=== PATIENT | female | born 1975 | race Caucasian/White ===

== ENCOUNTER 2020-09-17 12:10 | Observation (INO) | payer OTHER ==
[2020-09-17 13:07] LABS: Absolute Neutrophil Ct (ANC) 6.18 (1.4-6.9); BASOPHIL % 0.3 % (0.0-0.4); Basophil (Absolute #) 0.03 (0-0.4); Eosinophil % 2.2 % (0.00-5.0); Eosinophil (Absolute #) 0.21 (0-0.5); Hematocrit 45.9 % (35-47); Hemoglobin 14.5 gm/dl (12.0-16.0); Lymphocyte (Absolute #) 2.12 (1.0-4.6); Lymphocytes % 22.4 % (24.0-44.0); Mean Cell Volume 98.3 fl (78-100); Mean Corpuscular Hgb Concent. 31.6 g/dl (32-36); Mean Platelet Volume 10.2 fl (7.5-11.0); Monocyte (Absolute #) 0.92 (0.0-1.3); Monocytes % 9.7 % (0.0-12.0); Neutrophil % 65.4 % (36.0-66.0); Platelet Count 314 K/mm3 (150-450); Red Blood Count 4.67 M/mm3 (4.1-5.4); Red Cell Distribution Width 14.9 % (11.5-14.0); White Blood Count 9.5 K/mm3 (4.0-10.5)
[2020-09-17 13:18] LABS: Appearance SLIGHTLY CLOUDY (CLEAR); Bilirubin SMALL (NEGATIVE); Blood NEGATIVE Ery/ul (0-5); Epithelial Cells FEW /HPF (FEW); Glucose NEGATIVE (NEGATIVE); Ketones TRACE (NEGATIVE); Leukocyte Esterase NEGATIVE (NEGATIVE); Mucus SLIGHT /HPF (NEGATIVE); Nitrite NEGATIVE (NEGATIVE); Protein,Urine Dip 30 (Negative); RBC 0-2 /HPF (0-2); Specific Gravity 1.031 (1.005-1.025); Urobilinogen 4 mg/dL (0-1)
[2020-09-17 13:19] LABS: Bacteria FEW /HPF (NEGATIVE)
[2020-09-17 13:20] LABS: ALBUMIN 4.1 g/dL (3.5-5.0); ALKALINE PHOSPHATASE 118 U/L (38-126); ANION GAP 8.6 MEQ/L (5-15); BLOOD UREA NITROGEN 10 mg/dL (7-17); CHLORIDE 102 mmol/L (98-107); Calcium 8.9 mg/dL (8.4-10.2); Carbon Dioxide 31 mmol/L (22-30); Creatinine 1 0.95 mg/dL (0.52-1.04); EST GLOMERULAR FILTRATION RATE > 60.0 ML/MIN; Glucose 102 mg/dL (74-106); SGOT/AST 25 U/L (14-36); SGPT/ALT 21 U/L (0-35); SODIUM 138 mmol/L (137-145)
--- NOTE | 2020-09-17 13:20 | XRAY ---
Indication: Cellulitis. Edema. 2-dimensional sonogram and color Doppler imaging of the major venous vessels of the left and right leg was performed. Comparison: None No thrombus seen in the examined deep venous vessels of the left and right leg including greater saphenous vein. Veins demonstrate normal compressibility. Venous waveforms are normal with and without augmentation. Impression: Left and right legs negative for DVT.
--- NOTE | 2020-09-17 13:33 | ERPHSYRPT ---
- History of Present Illness Source: patient Exam Limitations: no limitations Patient Subjective Stated Complaint: pt here for cellulits to lower legs for over 2 months. was seen 3 days ago and refused to be admitted, was placed on 2 antiboitcs Triage Nursing Assessment: pt alert, resp easy,skin w/d/p. face mask in place, pt had reddness,scabs,blisters with drainage to both legs Physician History: 45 yo WF w B LE edema/erythema x 2+ months. Pt denies injury/fever/dyspnea/chest pain/DM. She was seen in a walk in clinic last week but does not f/u w her PCP on a regular basis. Method of Injury: unknown (No injury) Occurred: other (2+months) Quality: aching Severity of Pain-Max: moderate Severity of Pain-Current: moderate Lower Extremities Pain: leg: bilateral, ankle: bilateral Modifying Factors: Improves With: movement Associated Symptoms: none Allergies/Adverse Reactions: azithromycin [From Zithromax] Allergy (Verified 09/17/20 12:21) Home Medications: Amoxicillin 1 ea BID 09/17/20 [History] Sulfamethoxazole/Trimethoprim [Bactrim Ds Tablet] 1 ea BID 09/17/20 [History] Hx Influenza Vaccination/Date Given: No Hx Pneumococcal Vaccination/Date Given: Yes Immunizations Up to Date: Yes Travel Risk - International Travel Have you traveled outside of the country in past 3 weeks: No - Coronavirus Screening Are you exhibiting any of the following symptoms?: No Close contact with a COVID-19 positive Pt in past 14-21 Days: No - Vaccine Status Have you recieved a Covid-19 vaccination: No - Review of Systems Constitutional: No Symptoms Eyes: No Symptoms Ears, Nose, & Throat: No Symptoms Respiratory: No Symptoms Cardiac: No Symptoms Abdominal/Gastrointestinal: No Symptoms Genitourinary Symptoms: No Symptoms Musculoskeletal: Myalgias Skin: Cellulitis Neurological: No Symptoms Psychological: No Symptoms Endocrine: No Symptoms Hematologic/Lymphatic: No Symptoms Immunological/Allergic: No Symptoms - Past Medical History Pertinent Past Medical History: Yes Cardiac History: Peripheral Vascular Disease Endocrine Medical History: Hypothyroidism - Past Surgical History Past Surgical History: No - Social History Smoking Status: Current every day smoker Exposure to second hand smoke: Yes Drug Use: none Patient Lives Alone: No Significant Family History: no pertinent family hx - Female History Hx Last Menstrual Period: never Hx Now: No - Nursing Vital Signs Nursing Vital Signs: Initial Vital Signs Temperature 97.1 F 09/17/20 12:13 Pulse Rate 73 09/17/20 12:13 Respiratory Rate 18 09/17/20 12:13 Blood Pressure 129/82 09/17/20 12:13 O2 Sat by Pulse Oximetry 98 09/17/20 12:13 Pain Scale Pain Intensity 3 - Physical Exam General Appearance: obese (Morbidly) Eyes, Ears, Nose, Throat Exam: normal ENT inspection, TMs normal, pharynx normal, pharyngeal erythema Neck Exam: normal inspection, non-tender, supple, full range of motion, No Brudzinski, No Kernig's, No meningismus, No carotid bruit Cardiovascular/Respiratory Exam: normal breath sounds, regular rate/rhythm, hear t sounds normal Gastrointestinal/Abdominal Exam: non-tender, soft Back Exam: normal inspection, normal range of motion Hips Exam: bilateral: non-tender, normal inspection, normal range of motion Legs Exam: bilateral leg: soft tissue tenderness (B LE edema/erythema/weeping/Good pedal pulse B) Neuro/Tendon Exam: normal sensation, normal motor functions, normal tendon functions, responds to pain, no evidence tendon injury, No motor deficit, No sensory deficit Mental Status Exam: alert, oriented x 3, cooperative Skin Exam: other (B pre-tibial edema/erythema/weeping) SpO2: 98 O2 Delivery: Room Air - Radiology Ultrasound Exam Venous Lower Extremity Ultrasound: discussed w/radiologist (No DVT) Ordered Tests: Active Orders 24 hr Category Date Time Status IV Insertion STAT Care 09/17/20 12:47 Completed Heart-Healthy Diet Diet 09/17/20 Dinner Active VENOUS BILATERAL EXTREMITY [US] Stat Exams 09/17/20 12:39 Completed BLOOD CULTURE Stat Lab 09/17/20 12:55 Received CBC W DIFF Stat Lab 09/17/20 12:55 Completed CMP Stat Lab 09/17/20 12:55 Completed CULTURE,URINE Stat Lab 09/17/20 13:07 Received Lactic Acid Stat Lab 09/17/20 12:38 Completed NT PRO BNP Stat Lab 09/17/20 12:55 Completed POCT GLUCOSE Stat Lab 09/17/20 12:21 Completed PROCALCITONIN Stat Lab 09/17/20 13:55 Completed TSH [TSH, 3RD Generation] Stat Lab 09/17/20 13:27 Completed UA W/RFX UR CULTURE Stat Lab 09/17/20 13:07 Completed Transfer Order Routine Transfer 09/17/20 Completed Medication Summary Generic Name Dose Route Start Last Admin Trade Name Mateusz PRN Reason Stop Dose Admin Hydrocodone Bitart/Acetaminophen 2 tab 09/17/20 14:59 09/17/20 15:58 [place] 5/325 Mg PO 09/22/20 14:58 2 tab Q4H PRN PRN Administration PAIN Device 1 09/19/20 09:30 Trough Drug Levels IJ 09/19/20 09:31 1XONLY ONE Enoxaparin Sodium 40 mg 09/18/20 10:00 Enoxaparin Sodium SQ 10/18/20 09:59 DAILY DAMIEN Furosemide 40 mg 09/18/20 10:00 Lasix 40 Mg PO 10/18/20 09:59 DAILY DAMIEN Vancomycin HCl 2 gm in 400 mls @ 200 mls/hr 09/17/20 22:00 Vancomycin 2 Gram/400 Ml Bag IV 10/17/20 21:59 Q12H DAMIEN Levothyroxine Sodium 50 mcg 09/18/20 10:00 Synthroid 50 Mcg PO 10/18/20 09:59 DAILY DAMIEN Ondansetron HCl 4 mg 09/17/20 14:57 Zofran 4 Mg/2 Ml Vial IV 10/17/20 14:56 Q6H PRN PRN NAUSEA/VOMITING Pantoprazole Sodium 40 mg 09/18/20 10:00 Protonix 40 Mg Iv IV 10/18/20 09:59 Q24H10 DAMIEN Sodium Chloride 10 ml 09/17/20 22:00 Sodium Chloride 0.9% 10 Ml Flush Syringe IV 10/17/20 21:59 Q8HT DAMIEN Sodium Chloride 10 ml 09/17/20 16:00 Sodium Chloride 0.9% 10 Ml Flush Syringe IV 10/17/20 15:59 PRN PRN Discontinued Medications Generic Name Dose Route Start Last Admin Trade Name Mateusz PRN Reason Stop Dose Admin Vancomycin HCl 1 gm in 200 mls @ 125 mls/hr 09/17/20 13:45 09/17/20 13:46 Vancomycin 1 Gram/200 Ml Bag IV 10/17/20 13:44 125 mls/hr Q12H DAMIEN 125 mls/hr Administration Vancomycin HCl 2 gm in 400 mls @ 200 mls/hr 09/17/20 15:45 09/17/20 19:10 Vancomycin 2 Gram/400 Ml Bag IV 10/17/20 17:59 Not Given Q12H [facility] Lab/Rad Data: Laboratory Result Diagrams 09/17/20 12:55 09/17/20 12:55 Laboratory Results 09/17/20 09/17/20 09/17/20 Range/Units 14:05 13:55 13:27 WBC (4.0-10.5) K/mm3 RBC (4.1-5.4) M/mm3 Hgb (12.0-16.0) gm/dl Hct (35-47) % MCV (78-100) fl MCH (26-32) pg MCHC (32-36) g/dl RDW (11.5-14.0) % Plt Count (150-450) K/mm3 MPV (7.5-11.0) fl Gran % (36.0-66.0) % Eos # (Auto) (0-0.5) Absolute Lymphs (auto) (1.0-4.6) Absolute Monos (auto) (0.0-1.3) Lymphocytes % (24.0-44.0) % Monocytes % (0.0-12.0) % Eosinophils % (0.00-5.0) % Basophils % (0.0-0.4) % Absolute Granulocytes (1.4-6.9) Basophils # (0-0.4) Sodium (137-145) mmol/L Potassium (3.5-5.1) mmol/L Chloride (98-107) mmol/L Carbon Dioxide (22-30) mmol/L Anion Gap (5-15) MEQ/L BUN (7-17) mg/dL Creatinine (0.52-1.04) mg/dL Estimated GFR ML/MIN Glucose (74-106) mg/dL POC Glucometer (74 to 106) mg/dL Lactic Acid (0.4-2.0) Calcium (8.4-10.2) mg/dL Total Bilirubin (0.2-1.3) mg/dL AST (14-36) U/L ALT (0-35) U/L Alkaline Phosphatase (38-126) U/L NT-Pro-B Natriuret Pep (0-450) pg/mL Serum Total Protein (6.3-8.2) g/dL Albumin (3.5-5.0) g/dL Procalcitonin 0.053 (0.030-0.080) ng/mL Free T4 (0.76-1.46) ng/dL TSH 3rd Generation 2.840 (0.47-4.68) mIU/L Urine Color (YELLOW) Urine Appearance (CLEAR) Urine pH (5-6) Ur Specific [place] (1.005-1.025) Urine Protein (Negative) Urine Ketones (NEGATIVE) Urine Blood (0-5) Mahesh/ul Urine Nitrite (NEGATIVE) Urine Bilirubin (NEGATIVE) Urine Urobilinogen (0-1) mg/dL Ur Leukocyte Esterase (NEGATIVE) Urine WBC (Auto) (0-5) /HPF Urine RBC (Auto) (0-2) /HPF U Hyaline Cast (Auto) (0-2) /LPF U Epithel Cells (Auto) (FEW) /HPF Urine Bacteria (Auto) (NEGATIVE) /HPF Urine Mucus (Auto) (NEGATIVE) /HPF Urine Culture Reflexed (NO) Urine Glucose (NEGATIVE) mg/dL Influenza Type A Ag NEGATIVE (NEGATIVE) Influenza Type B Ag NEGATIVE (NEGATIVE) RSV (PCR) NEGATIVE (Negative) SARS-CoV-2 (PCR) NEGATIVE (NEGATIVE) 09/17/20 09/17/20 09/17/20 Range/Units 13:07 12:55 12:55 WBC (4.0-10.5) K/mm3 RBC (4.1-5.4) M/mm3 Hgb (12.0-16.0) gm/dl Hct (35-47) % MCV (78-100) fl MCH (26-32) pg MCHC (32-36) g/dl RDW (11.5-14.0) % Plt Count (150-450) K/mm3 MPV (7.5-11.0) fl Gran % (36.0-66.0) % Eos # (Auto) (0-0.5) Absolute Lymphs (auto) (1.0-4.6) Absolute Monos (auto) (0.0-1.3) Lymphocytes % (24.0-44.0) % Monocytes % (0.0-12.0) % Eosinophils % (0.00-5.0) % Basophils % (0.0-0.4) % Absolute Granulocytes (1.4-6.9) Basophils # (0-0.4) Sodium (137-145) mmol/L Potassium (3.5-5.1) mmol/L Chloride (98-107) mmol/L Carbon Dioxide (22-30) mmol/L Anion Gap (5-15) MEQ/L BUN (7-17) mg/dL Creatinine (0.52-1.04) mg/dL Estimated GFR ML/MIN Glucose (74-106) mg/dL POC Glucometer (74 to 106) mg/dL Lactic Acid (0.4-2.0) Calcium (8.4-10.2) mg/dL Total Bilirubin (0.2-1.3) mg/dL AST (14-36) U/L ALT (0-35) U/L Alkaline Phosphatase (38-126) U/L NT-Pro-B Natriuret Pep 35.3 (0-450) pg/mL Serum Total Protein (6.3-8.2) g/dL Albumin (3.5-5.0) g/dL Procalcitonin (0.030-0.080) ng/mL Free T4 0.72 L (0.76-1.46) ng/dL TSH 3rd Generation (0.47-4.68) mIU/L Urine Color REAGAN (YELLOW) Urine Appearance SLIGHTLY CLOUDY (CLEAR) Urine pH 5.0 (5-6) Ur Specific [place] 1.031 (1.005-1.025) Urine Protein 30 (Negative) Urine Ketones TRACE (NEGATIVE) Urine Blood NEGATIVE (0-5) Mahesh/ul Urine Nitrite NEGATIVE (NEGATIVE) Urine Bilirubin SMALL (NEGATIVE) Urine Urobilinogen 4 (0-1) mg/dL Ur Leukocyte Esterase NEGATIVE (NEGATIVE) Urine WBC (Auto) 6-10 (0-5) /HPF Urine RBC (Auto) 0-2 (0-2) /HPF U Hyaline Cast (Auto) 6-10 (0-2) /LPF U Epithel Cells (Auto) FEW (FEW) /HPF Urine Bacteria (Auto) FEW (NEGATIVE) /HPF Urine Mucus (Auto) SLIGHT (NEGATIVE) /HPF Urine Culture Reflexed YES (NO) Urine Glucose NEGATIVE (NEGATIVE) mg/dL Influenza Type A Ag (NEGATIVE) Influenza Type B Ag (NEGATIVE) RSV (PCR) (Negative) SARS-CoV-2 (PCR) (NEGATIVE) 09/17/20 09/17/20 09/17/20 Range/Units 12:55 12:55 12:38 WBC 9.5 (4.0-10.5) K/mm3 RBC 4.67 (4.1-5.4) M/mm3 Hgb 14.5 (12.0-16.0) gm/dl Hct 45.9 (35-47) % MCV 98.3 (78-100) fl MCH 31.0 (26-32) pg MCHC 31.6 L (32-36) g/dl RDW 14.9 H (11.5-14.0) % Plt Count 314 (150-450) K/mm3 MPV 10.2 (7.5-11.0) fl Gran % 65.4 (36.0-66.0) % Eos # (Auto) 0.21 (0-0.5) Absolute Lymphs (auto) 2.12 (1.0-4.6) Absolute Monos (auto) 0.92 (0.0-1.3) Lymphocytes % 22.4 L (24.0-44.0) % Monocytes % 9.7 (0.0-12.0) % Eosinophils % 2.2 (0.00-5.0) % Basophils % 0.3 (0.0-0.4) % Absolute Granulocytes 6.18 (1.4-6.9) Basophils # 0.03 (0-0.4) Sodium 138 (137-145) mmol/L Potassium 4.0 (3.5-5.1) mmol/L Chloride 102 (98-107) mmol/L Carbon Dioxide 31 H (22-30) mmol/L Anion Gap 8.6 (5-15) MEQ/L BUN 10 (7-17) mg/dL Creatinine 0.95 (0.52-1.04) mg/dL Estimated GFR > 60.0 ML/MIN Glucose 102 (74-106) mg/dL POC Glucometer (74 to 106) mg/dL Lactic Acid 0.9 (0.4-2.0) Calcium 8.9 (8.4-10.2) mg/dL Total Bilirubin 0.50 (0.2-1.3) mg/dL AST 25 (14-36) U/L ALT 21 (0-35) U/L Alkaline Phosphatase 118 (38-126) U/L NT-Pro-B Natriuret Pep (0-450) pg/mL Serum Total Protein 8.0 (6.3-8.2) g/dL Albumin 4.1 (3.5-5.0) g/dL Procalcitonin (0.030-0.080) ng/mL Free T4 (0.76-1.46) ng/dL TSH 3rd Generation (0.47-4.68) mIU/L Urine Color (YELLOW) Urine Appearance (CLEAR) Urine pH (5-6) Ur Specific [place] (1.005-1.025) Urine Protein (Negative) Urine Ketones (NEGATIVE) Urine Blood (0-5) Mahesh/ul Urine Nitrite (NEGATIVE) Urine Bilirubin (NEGATIVE) Urine Urobilinogen (0-1) mg/dL Ur Leukocyte Esterase (NEGATIVE) Urine WBC (Auto) (0-5) /HPF Urine RBC (Auto) (0-2) /HPF U Hyaline Cast (Auto) (0-2) /LPF U Epithel Cells (Auto) (FEW) /HPF Urine Bacteria (Auto) (NEGATIVE) /HPF Urine Mucus (Auto) (NEGATIVE) /HPF Urine Culture Reflexed (NO) Urine Glucose (NEGATIVE) mg/dL Influenza Type A Ag (NEGATIVE) Influenza Type B Ag (NEGATIVE) RSV (PCR) (Negative) SARS-CoV-2 (PCR) (NEGATIVE) 09/17/20 Range/Units 12:21 WBC (4.0-10.5) K/mm3 RBC (4.1-5.4) M/mm3 Hgb (12.0-16.0) gm/dl Hct (35-47) % MCV (78-100) fl MCH (26-32) pg MCHC (32-36) g/dl RDW (11.5-14.0) % Plt Count (150-450) K/mm3 MPV (7.5-11.0) fl Gran % (36.0-66.0) % Eos # (Auto) (0-0.5) Absolute Lymphs (auto) (1.0-4.6) Absolute Monos (auto) (0.0-1.3) Lymphocytes % (24.0-44.0) % Monocytes % (0.0-12.0) % Eosinophils % (0.00-5.0) % Basophils % (0.0-0.4) % Absolute Granulocytes (1.4-6.9) Basophils # (0-0.4) Sodium (137-145) mmol/L Potassium (3.5-5.1) mmol/L Chloride (98-107) mmol/L Carbon Dioxide (22-30) mmol/L Anion Gap (5-15) MEQ/L BUN (7-17) mg/dL Creatinine (0.52-1.04) mg/dL Estimated GFR ML/MIN Glucose (74-106) mg/dL POC Glucometer 128 H (74 to 106) mg/dL Lactic Acid (0.4-2.0) Calcium (8.4-10.2) mg/dL Total Bilirubin (0.2-1.3) mg/dL AST (14-36) U/L ALT (0-35) U/L Alkaline Phosphatase (38-126) U/L NT-Pro-B Natriuret Pep (0-450) pg/mL Serum Total Protein (6.3-8.2) g/dL Albumin (3.5-5.0) g/dL Procalcitonin (0.030-0.080) ng/mL Free T4 (0.76-1.46) ng/dL TSH 3rd Generation (0.47-4.68) mIU/L Urine Color (YELLOW) Urine Appearance (CLEAR) Urine pH (5-6) Ur Specific [place] (1.005-1.025) Urine Protein (Negative) Urine Ketones (NEGATIVE) Urine Blood (0-5) Mahesh/ul Urine Nitrite (NEGATIVE) Urine Bilirubin (NEGATIVE) Urine Urobilinogen (0-1) mg/dL Ur Leukocyte Esterase (NEGATIVE) Urine WBC (Auto) (0-5) /HPF Urine RBC (Auto) (0-2) /HPF U Hyaline Cast (Auto) (0-2) /LPF U Epithel Cells (Auto) (FEW) /HPF Urine Bacteria (Auto) (NEGATIVE) /HPF Urine Mucus (Auto) (NEGATIVE) /HPF Urine Culture Reflexed (NO) Urine Glucose (NEGATIVE) mg/dL Influenza Type A Ag (NEGATIVE) Influenza Type B Ag (NEGATIVE) RSV (PCR) (Negative) SARS-CoV-2 (PCR) (NEGATIVE) - Progress Discussed with Dr.: Pat Will see patient in: hospital (observation) Counseled pt/family regarding: lab results, diagnosis, rad results - Departure Departure Disposition: Observation Clinical Impression: Cellulitis Condition: Stable Critical Care Time: No
[2020-09-17] MEDS ORDERED: VANCOMYCIN 1 GRAM/200 ML BAG 1 GM/200 ML PIGGYBACK IV SCH (13:45)
[2020-09-17 14:46] LABS: INFLUENZA A NEGATIVE (NEGATIVE); INFLUENZA B NEGATIVE (NEGATIVE); RESPIRATORY SYNCTIAL VIRUS NEGATIVE (Negative)
[2020-09-17] MEDS ORDERED: Zofran 4 MG/2 ML VIAL IV PRN (14:57)
[2020-09-17] MEDS ORDERED: VANCOMYCIN 2 GRAM/400 ML BAG 2 GM/400 ML PIGGYBACK IV SCH (15:45)
[2020-09-17] MEDS: NORCO 5/325 MG PO PRN ×2 (15:58→22:07)
[2020-09-17] MEDS ORDERED: Sodium Chloride 0.9% 10 ML FLUSH Syringe IV PRN (16:00)
[2020-09-17] MEDS: VANCOMYCIN 2 GRAM/400 ML BAG 2 GM/400 ML PIGGYBACK IV SCH (22:11)
[2020-09-17] MEDS: Sodium Chloride 0.9% 10 ML FLUSH Syringe IV SCH (23:34)
[2020-09-18] MEDS: Sodium Chloride 0.9% 10 ML FLUSH Syringe IV SCH ×3 (06:57→23:29)
[2020-09-18 07:29] LABS: Absolute Neutrophil Ct (ANC) 3.76 (1.4-6.9); BASOPHIL % 0.4 % (0.0-0.4); Basophil (Absolute #) 0.03 (0-0.4); Eosinophil % 4.4 % (0.00-5.0); Eosinophil (Absolute #) 0.35 (0-0.5); Hematocrit 40.5 % (35-47); Hemoglobin 12.6 gm/dl (12.0-16.0); Lymphocyte (Absolute #) 2.83 (1.0-4.6); Mean Cell Volume 100.5 fl (78-100); Mean Corpuscular Hemoglobin 31.3 pg (26-32); Mean Corpuscular Hgb Concent. 31.1 g/dl (32-36); Mean Platelet Volume 9.9 fl (7.5-11.0); Monocytes % 11.4 % (0.0-12.0); Neutrophil % 47.8 % (36.0-66.0); Platelet Count 278 K/mm3 (150-450); Red Blood Count 4.03 M/mm3 (4.1-5.4); Red Cell Distribution Width 14.9 % (11.5-14.0); White Blood Count 7.9 K/mm3 (4.0-10.5)
[2020-09-18 07:40] LABS: ALBUMIN 3.5 g/dL (3.5-5.0); ALKALINE PHOSPHATASE 111 U/L (38-126); BLOOD UREA NITROGEN 9 mg/dL (7-17); CHLORIDE 104 mmol/L (98-107); Calcium 8.2 mg/dL (8.4-10.2); Carbon Dioxide 28 mmol/L (22-30); Creatinine 1 0.71 mg/dL (0.52-1.04); EST GLOMERULAR FILTRATION RATE > 60.0 ML/MIN; Glucose 115 mg/dL (74-106); SGOT/AST 29 U/L (14-36); SGPT/ALT 18 U/L (0-35); SODIUM 137 mmol/L (137-145); Total Protein 6.8 g/dL (6.3-8.2)
[2020-09-18] MEDS: Lasix 40 MG PO SCH (09:42)
[2020-09-18] MEDS: NORCO 5/325 MG PO PRN ×2 (09:42→22:00)
[2020-09-18] MEDS: PROTONIX 40 MG IV IV SCH (09:42)
[2020-09-18] MEDS: VANCOMYCIN 2 GRAM/400 ML BAG 2 GM/400 ML PIGGYBACK IV SCH ×2 (09:42→22:00)
[2020-09-18] MEDS: ENOXAPARIN SODIUM SQ SCH (09:43)
[2020-09-18] MEDS: SYNTHROID 50 MCG PO SCH (09:43)
--- NOTE | 2020-09-18 14:50 | PCM.NOTE ---
Date and Time: 09/18/20 1425 Subjective Assessment: Patient has redness /weeping wounds bilateral LE with failed outpatient tx of cellulitis . She was on Bactrim and Amoxicillin as outpatient . Has had 2 doses of Vancomycin and understands she will need to continue with the IV antibiotcs over the holiday weekend. States no other c/o. Appetite is good,no abd pain no chest pain no shortness of breath or cough. Objective Exam General Appearance: no apparent distress Neurologic Exam: alert, oriented x 3, cooperative, normal mood/affect Skin Exam: normal color, warm, dry Wound Assessment: Skin/Wound Assessment Wound/Incision Assessment Start: 09/17/20 16:00 Text: Status: Active Freq: Q6H Protocol: Document 09/18/20 13:56 RN (Rec: 09/18/20 14:05 RN [id number]) Wound/Incision Assessment BLE Wound Assessment Shift Assessment Wound Type cellulitus Wound Stage Non Pressure Wound Drainage Description Serous General Appearance Open to air,Reddened,Draining, Unapproximated Surrounding Tissue Edematous,Weeping Topical Solution/Irrigant Saline Irrigant Primary Dressing Gauze Pads Secondary Dressing Absorbant Pad Comment wet to dry dressing applied Wound Photo Photo Taken No Neck Exam: other (right thyroid palpable(Hx goiter per patient)) Respiratory Exam: normal breath sounds Cardiovascular Exam: regular rate/rhythm Gastrointestinal/Abdomen Exam: soft, normal bowel sounds Extremity Exam: swelling, tenderness, other ( mid calf down abrasions scabbed with weeping, red with heat and edema1-2+/4) OBJECTIVE DATA Vital Signs: Vital Signs - 24 hr Temp Pulse Resp BP BP Pulse Ox 09/18/20 12:00 98.1 F 76 20 95 09/18/20 08:00 97.7 F 74 20 119/55 94 L 09/18/20 03:30 97.9 F 86 20 137/60 98 09/18/20 00:00 98.4 F 93 H 19 112/56 95 09/17/20 21:13 98 09/17/20 19:41 98.1 F 94 H 18 119/57 95 09/17/20 15:25 97.4 F 91 H 135/74 97 09/17/20 15:23 97.4 F 91 H 20 135/74 97 09/17/20 15:16 97.4 F 91 H 135/74 97 Pain Assessment - Last Documented Pain Intensity 3 Pain Scale Used 0-10 Pain Scale Intake and Output: Intake & Output 09/16/20 09/17/20 09/18/20 09/19/20 11:59 11:59 11:59 11:59 Intake Total 1280 360 Balance 1280 360 Weight 143 kg Lab Results: Lab Results-Last 24 Hours 09/17/20 09/17/20 09/17/20 Range/Units 12:55 13:27 13:55 WBC (4.0-10.5) K/mm3 RBC (4.1-5.4) M/mm3 Hgb (12.0-16.0) gm/dl Hct (35-47) % MCV (78-100) fl MCH (26-32) pg MCHC (32-36) g/dl RDW (11.5-14.0) % Plt Count (150-450) K/mm3 MPV (7.5-11.0) fl Gran % (36.0-66.0) % Eos # (Auto) (0-0.5) Absolute Lymphs (auto) (1.0-4.6) Absolute Monos (auto) (0.0-1.3) Lymphocytes % (24.0-44.0) % Monocytes % (0.0-12.0) % Eosinophils % (0.00-5.0) % Basophils % (0.0-0.4) % Absolute Granulocytes (1.4-6.9) Basophils # (0-0.4) Sodium (137-145) mmol/L Potassium (3.5-5.1) mmol/L Chloride (98-107) mmol/L Carbon Dioxide (22-30) mmol/L Anion Gap (5-15) MEQ/L BUN (7-17) mg/dL Creatinine (0.52-1.04) mg/dL Estimated GFR ML/MIN Glucose (74-106) mg/dL Calcium (8.4-10.2) mg/dL Total Bilirubin (0.2-1.3) mg/dL AST (14-36) U/L ALT (0-35) U/L Alkaline Phosphatase (38-126) U/L Serum Total Protein (6.3-8.2) g/dL Albumin (3.5-5.0) g/dL Procalcitonin 0.053 (0.030-0.080) ng/mL Free T4 0.72 L (0.76-1.46) ng/dL TSH 3rd Generation 2.840 (0.47-4.68) mIU/L Influenza Type A Ag (NEGATIVE) Influenza Type B Ag (NEGATIVE) RSV (PCR) (Negative) SARS-CoV-2 (PCR) (NEGATIVE) 09/17/20 09/18/20 09/18/20 Range/Units 14:05 06:00 06:00 WBC 7.9 (4.0-10.5) K/mm3 RBC 4.03 L (4.1-5.4) M/mm3 Hgb 12.6 (12.0-16.0) gm/dl Hct 40.5 (35-47) % MCV 100.5 H (78-100) fl MCH 31.3 (26-32) pg MCHC 31.1 L (32-36) g/dl RDW 14.9 H (11.5-14.0) % Plt Count 278 (150-450) K/mm3 MPV 9.9 (7.5-11.0) fl Gran % 47.8 (36.0-66.0) % Eos # (Auto) 0.35 (0-0.5) Absolute Lymphs (auto) 2.83 (1.0-4.6) Absolute Monos (auto) 0.90 (0.0-1.3) Lymphocytes % 36.0 (24.0-44.0) % Monocytes % 11.4 (0.0-12.0) % Eosinophils % 4.4 (0.00-5.0) % Basophils % 0.4 (0.0-0.4) % Absolute Granulocytes 3.76 (1.4-6.9) Basophils # 0.03 (0-0.4) Sodium 137 (137-145) mmol/L Potassium 4.0 (3.5-5.1) mmol/L Chloride 104 (98-107) mmol/L Carbon Dioxide 28 (22-30) mmol/L Anion Gap 9.0 (5-15) MEQ/L BUN 9 (7-17) mg/dL Creatinine 0.71 (0.52-1.04) mg/dL Estimated GFR > 60.0 ML/MIN Glucose 115 H (74-106) mg/dL Calcium 8.2 L (8.4-10.2) mg/dL Total Bilirubin 0.30 (0.2-1.3) mg/dL AST 29 (14-36) U/L ALT 18 (0-35) U/L Alkaline Phosphatase 111 (38-126) U/L Serum Total Protein 6.8 (6.3-8.2) g/dL Albumin 3.5 (3.5-5.0) g/dL Procalcitonin (0.030-0.080) ng/mL Free T4 (0.76-1.46) ng/dL TSH 3rd Generation (0.47-4.68) mIU/L Influenza Type A Ag NEGATIVE (NEGATIVE) Influenza Type B Ag NEGATIVE (NEGATIVE) RSV (PCR) NEGATIVE (Negative) SARS-CoV-2 (PCR) NEGATIVE (NEGATIVE) Radiology Exams: Radiology Procedures Category Date Time Status VENOUS BILATERAL EXTREMITY [US] Stat Exams 09/17/20 12:39 Completed Multi-Disciplinary Progress Notes: Multi-Disciplinary Progress Notes 09/17/20 15:56 Pharmacy Note by Oracio Castle Pharmacokinetic dosing service Date: 09/17/20 Time:1600 Objective: Patient: Floor: Age: 45 yo Serum creatinine: 0.95 mg/dL Height: 66 Inches Weight (kg): 140 Diagnosis:CELLULITIS Relevant medical/social history: Cultures and sensitivities: Other labs: Assessment: IBW (kg): 59.30 Dosing wt(kg): 140 Estimated Creatinine clearance (ml/min): 71.5 CRCL method: Cockcroft and Gault using ibw(default). Drug selected: Vancomycin Loading dose (mg): 0 Vd (liters): 105.0 (factor used: 0.75 L/kg) Kenny (hr-1): 0.064 Half life (hrs): 10.83 Recommended dose: 2000 mg Interval: 12 hrs Infusion time (hrs): 1.5 Predicted peak (mcg/mL): 33.9 Predicted trough (mcg/mL): 17.31 Total body weight is being used for vancomycin dosing. Renal function is stable [X] /unstable [ ] Recommendations: (GOT 1 GRAM VANCOMYCIN IN ER) Give Vancomycin 2000 mg q 12 hrs with an expected Cpeak of 33.9 mcg/ml and an expected Ctrough of 17.31 mcg/ml Renal dosing of other antibiotics (review renal dosing of other medications and list guidelines here): Thank you for the consult, will continue to follow. Signature:[facility] Initialized on 09/17/20 15:56 - END OF NOTE Assessment/Plan (1) Cellulitis Current Visit: Yes Status: Acute Qualifiers: Site of cellulitis: extremity Laterality: left Assessment & Plan: acute and chronic failed outpatient tx.Start wet to dry dressings to weyovanny LE. Code(s): L03.90 - CELLULITIS, UNSPECIFIED (2) UTI (urinary tract infection) Current Visit: Yes Status: Acute Assessment & Plan: culture growing gram negative bacteria Code(s): N39.0 - URINARY TRACT INFECTION, SITE NOT SPECIFIED (3) History of Graves' disease Current Visit: Yes Status: Resolved Assessment & Plan: thyroid asymmetry right > left ,treated with radioactive iodine as a teenager. Code(s): Z86.39 - PERSONAL HISTORY OF ENDO, NUTRITIONAL AND METABOLIC DISEASE
[2020-09-18] MEDS: Ativan 0.5 MG PO PRN (21:59)
[2020-09-19] MEDS: Sodium Chloride 0.9% 10 ML FLUSH Syringe IV SCH ×3 (05:06→22:06)
[2020-09-19] MEDS ORDERED: TROUGH DRUG LEVELS IJ ONE (09:30)
[2020-09-19] MEDS: SYNTHROID 50 MCG PO SCH (10:15)
[2020-09-19] MEDS: PROTONIX 40 MG IV IV SCH (10:15)
[2020-09-19] MEDS: ENOXAPARIN SODIUM SQ SCH (10:15)
[2020-09-19] MEDS: Lasix 40 MG PO SCH (10:15)
[2020-09-19] MEDS: VANCOMYCIN 2 GRAM/400 ML BAG 2 GM/400 ML PIGGYBACK IV SCH ×2 (10:16→22:06)
[2020-09-19] MEDS: NORCO 5/325 MG PO PRN ×2 (11:50→22:08)
[2020-09-19] MEDS: Invanz 1 GM*** 1 G in Sodium Chloride 100ML MINI-BAG PLUS 100 ML IV SCH (13:14)
--- NOTE | 2020-09-19 13:34 | PCM.HP ---
History of Present Illness - Chief Complaint Chief Complaint: BLE cellulitis History of Present Illness: is a 45 year old female who was admitted for failed outpatient treatment of cellulitis. - Review of Systems Constitutional: Fatigue Eyes: No Symptoms Ears, Nose, & Throat: No Symptoms Respiratory: No Symptoms Cardiac: No Symptoms Abdominal/Gastrointestinal: Constipation Genitourinary Symptoms: Frequency Musculoskeletal: Myalgias Skin: Cellulitis (see HPI) Psychological: Anxiety (living with son temporarily financial hardship, is disabled.) Medications & Allergies Home Medications: Home Medication List Amoxicillin 1 ea BID 09/17/20 [History Confirmed 09/17/20] Sulfamethoxazole/Trimethoprim [Bactrim Ds Tablet] 1 ea BID 09/17/20 [History Confirmed 09/17/20] Allergies/Adverse Reactions: Allergies Allergy/AdvReac Type Severity Reaction Status Date / Time azithromycin [From Zithromax] Allergy Verified 09/17/20 12:21 - Past Medical History Past Medical History: Yes Neurological History: No Pertinent History ENT History: No Pertinent History Cardiac History: Peripheral Vascular Disease Respiratory History: No Pertinent History Endocrine Medical History: Hypothyroidism, Other (treated for overactive thyroid with radioactive iodine at age 19 per patient) Musculoskelatal History: No Pertinent History GI Medical History: No Pertinent History History: No Pertinent History Pyscho-Social History: Depression Reproductive Disorders: No Pertinent History - Female History Hx Last Menstrual Period: never Are you now?: No - Past Surgical History Past Surgical History: No Neuro Surgical History: No Pertinent History Cardiac History: No Pertinent History Respiratory Surgery: No Pertinent History GI Surgical History: No Pertinent History Genitourinary Surgical Hx: No Pertinent History Musculskeletal Surgical Hx: No Pertinent History Female Surgical History: No Pertinent History 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 - Social History Smoking Status: Current every day smoker How long have you smoked: 23 years Exposure to second hand smoke: Yes Alcohol: None Drug Use: none Significant Family History: no pertinent family hx - Physical Exam Vital Signs: Vital Signs - 24 hr Temp Pulse Resp BP Pulse Ox 09/19/20 07:28 98.0 F 84 16 122/66 96 09/19/20 03:44 97.8 F 81 17 99/58 95 09/18/20 23:43 97.6 F 103 H 20 112/54 96 09/18/20 19:51 98.4 F 82 16 127/75 98 05/29/21 16:00 98.2 F 86 22 121/77 96 General Appearance: anxiety (improved,started Ativan) Neurologic Exam: alert, oriented x 3, cooperative Eye Exam: eyes nml inspection Ears, Nose, Throat Exam: normal ENT inspection Neck Exam: other (thyroid fullness/nodule right side,nontender) Respiratory Exam: normal breath sounds Cardiovascular Exam: regular rate/rhythm Gastrointestinal/Abdomen Exam: soft, tenderness (minimal across low abdomen no guarding or rebound) Extremity Exam: swelling (2+/4 pitting), tenderness ( weeping red crusty large lesions bilateral LE-improved after wet to dry dressings) Skin Exam: normal color, warm, dry Wound Assessment: Skin/Wound Assessment Wound/Incision Assessment Start: 09/17/20 16:00 Text: Status: Active Freq: Q6H Protocol: Document 09/19/20 08:00 DS (Rec: 09/19/20 09:34 DS [id number]) Wound/Incision Assessment BLE Wound Assessment Shift Assessment Wound Type cellulitus Wound Stage Non Pressure Wound Dressing Status Changed Drainage Amount Minimal Drainage Description Serous Drainage Odor None/Absent General Appearance Open to air,Reddened,Draining, Unapproximated Surrounding Tissue Edematous,Weeping Topical Solution/Irrigant Saline Irrigant Primary Dressing Gauze Pads Secondary Dressing Gauze Roll/Wrap Comment wet to dry dressings in place Wound Photo Photo Taken No Results - Labs Lab/Micro Results: Lab Results-Last 24 Hours 09/19/20 Range/Units 09:35 Vancomycin Trough 15.80 (10-20) ug/mL Microbiology 09/17/20 13:07 Urine Culture - Final Clean Catch Midstream Escherichia Coli 09/17/20 13:55 Blood Culture - Preliminary Blood NO GROWTH TO DATE 09/17/20 12:55 Blood Culture - Preliminary Blood NO GROWTH TO DATE - Radiology Impressions Radiology Exams & Impressions: Radiology Procedures Category Date Time Status VENOUS BILATERAL EXTREMITY [US] Stat Exams 09/17/20 12:39 Completed Assessment/Plan (1) Cellulitis Current Visit: Yes Status: Acute Qualifiers: Site of cellulitis: extremity Laterality: unspecified laterality Assessment & Plan: worsening of chronic cellulitis /failed outpatient tx with Amoxicillin and bactrim. ER started Vancomycin , Started wet to dry dressings for the weeping,crusty bilateral LE lesions due to edema and infection. Code(s): L03.90 - CELLULITIS, UNSPECIFIED (2) UTI (urinary tract infection) Current Visit: Yes Status: Acute Assessment & Plan: culture grew ESBL E.Coli - low colony [id number]-treat with Ertapenem Code(s): N39.0 - URINARY TRACT INFECTION, SITE NOT SPECIFIED (3) History of Graves' disease Current Visit: Yes Status: Resolved Code(s): Z86.39 - PERSONAL HISTORY OF ENDO, NUTRITIONAL AND METABOLIC DISEASE (4) Hypothyroidism (acquired) Current Visit: Yes Status: Chronic Assessment & Plan: start levothyroxine Code(s): E03.9 - HYPOTHYROIDISM, UNSPECIFIED (5) Hypocalcemia Current Visit: Yes Status: Acute Assessment & Plan: check PTH,start calcium Code(s): E83.51 - HYPOCALCEMIA (6) Anxiety Current Visit: Yes Status: Acute Assessment & Plan: situational- started Ativan,prn dosing Code(s): F41.9 - ANXIETY DISORDER, UNSPECIFIED
[2020-09-19] MEDS: Ativan 0.5 MG PO PRN (22:09)
[2020-09-20 03:43] VITALS: PULSE 84
[2020-09-20 04:46] LABS: BASOPHIL % 0.4 % (0.0-0.4); Basophil (Absolute #) 0.03 (0-0.4); Eosinophil (Absolute #) 0.29 (0-0.5); Hematocrit 42.6 % (35-47); Hemoglobin 13.1 gm/dl (12.0-16.0); Lymphocyte (Absolute #) 2.41 (1.0-4.6); Lymphocytes % 32.8 % (24.0-44.0); Mean Cell Volume 100.2 fl (78-100); Mean Corpuscular Hemoglobin 30.8 pg (26-32); Mean Corpuscular Hgb Concent. 30.8 g/dl (32-36); Monocyte (Absolute #) 0.71 (0.0-1.3); Monocytes % 9.7 % (0.0-12.0); Neutrophil % 53.1 % (36.0-66.0); Platelet Count 281 K/mm3 (150-450); Red Blood Count 4.25 M/mm3 (4.1-5.4); Red Cell Distribution Width 14.7 % (11.5-14.0); White Blood Count 7.3 K/mm3 (4.0-10.5)
[2020-09-20] MEDS: Sodium Chloride 0.9% 10 ML FLUSH Syringe IV SCH (05:00)
[2020-09-20 05:07] LABS: ALBUMIN 3.6 g/dL (3.5-5.0); ALKALINE PHOSPHATASE 100 U/L (38-126); ANION GAP 7.7 MEQ/L (5-15); BLOOD UREA NITROGEN 9 mg/dL (7-17); CHLORIDE 102 mmol/L (98-107); Calcium 8.6 mg/dL (8.4-10.2); Carbon Dioxide 31 mmol/L (22-30); Creatinine 1 0.71 mg/dL (0.52-1.04); EST GLOMERULAR FILTRATION RATE > 60.0 ML/MIN; Glucose 111 mg/dL (74-106); MAGNESIUM 2.1 mg/dL (1.6-2.3); PHOSPHOROUS 3.9 mg/dL (2.5-4.5); Potassium 3.9 mmol/L (3.5-5.1); SGOT/AST 29 U/L (14-36); SGPT/ALT 19 U/L (0-35); SODIUM 137 mmol/L (137-145); Total Protein 6.9 g/dL (6.3-8.2)
[2020-09-20 07:55] VITALS: BP 117/59; O2SAT 96
[2020-09-20] MEDS: Lasix 40 MG PO SCH (09:34)
[2020-09-20] MEDS: NORCO 5/325 MG PO PRN (09:34)
[2020-09-20] MEDS: SYNTHROID 50 MCG PO SCH (09:34)
[2020-09-20] MEDS: PROTONIX 40 MG IV IV SCH (09:35)
[2020-09-20] MEDS: ENOXAPARIN SODIUM SQ SCH (09:35)
[2020-09-20] MEDS: Invanz 1 GM*** 1 G in Sodium Chloride 100ML MINI-BAG PLUS 100 ML IV SCH (09:36)
[2020-09-20] MEDS ORDERED: Calcium 500MG W/Vit D Tablet PO SCH (10:00)
[2020-09-20] MEDS: Ativan 0.5 MG PO PRN (10:23)
[2020-09-20] MEDS: VANCOMYCIN 2 GRAM/400 ML BAG 2 GM/400 ML PIGGYBACK IV SCH (10:45)
--- NOTE | 2020-09-20 11:47 | PCM.DS ---
Discharge Summary Date of Admission: 09/18/20 14:25 Admitting Physician: RICH ALVARADO Primary Care Provider: GEO DEL RIO Allergies Allergies azithromycin [From Zithromax] Allergy (Verified 09/17/20 12:21) Hospital Summary - Hospital Course Hospital Course: Pt is 45 yo female pt of Dr. Alvarado with PMHx Graves' dz and obesity who was admitted through ER with cellulitis (failed OP treatment, acute on chronic). She was started on IV vancomycin with improvement of the legs bilaterally. She was found to have urine cx positive for E. coli (ESBL +) and Invanz was added to her antibiotic regimen. Pt would really like to be discharged to home. She apparently lives with one of her children. Her Urine culture only grew 20,000 - 30,000 CFUs so will finish out 3d of Invanz by setting her up with outpatient infusion for tomorrow. She has had 4d of vancomycin, so will change that to Zyvox on discharge (alternatively, if zyvox is not covered, will give her po levaquin). There is no culture result for the legs. They have improved. She will need OP physical therapy for some dressing changes. Pt has received ativan here for anxiety, but that was thought to be situational. She has also been getting norco, and she will get a small amount to take at home. F/u with Dr. Alvarado in 1 week. - Vitals & Intake/Output Vital Signs: Vital Signs Temperature 97.2 F 09/20/20 07:54 Pulse Rate 84 09/20/20 07:54 Respiratory Rate 18 09/20/20 07:54 Blood Pressure 117/59 09/20/20 07:54 O2 Sat by Pulse Oximetry 96 09/20/20 07:54 Intake & Output: Intake & Output 09/17/20 09/18/20 09/19/20 09/20/20 11:59 11:59 11:59 11:59 Intake Total 1280 1280 1740 Balance 1280 1280 1740 Weight 143 kg 143.2 kg - Lab Result Diagrams: 09/20/20 04:15 09/20/20 04:15 Lab Results-Last 24 Hrs: Lab Results-Last 24 Hours 09/20/20 09/20/20 09/20/20 Range/Units 04:10 04:15 04:15 WBC 7.3 (4.0-10.5) K/mm3 RBC 4.25 (4.1-5.4) M/mm3 Hgb 13.1 (12.0-16.0) gm/dl Hct 42.6 (35-47) % MCV 100.2 H (78-100) fl MCH 30.8 (26-32) pg MCHC 30.8 L (32-36) g/dl RDW 14.7 H (11.5-14.0) % Plt Count 281 (150-450) K/mm3 MPV 10.0 (7.5-11.0) fl Gran % 53.1 (36.0-66.0) % Eos # (Auto) 0.29 (0-0.5) Absolute Lymphs (auto) 2.41 (1.0-4.6) Absolute Monos (auto) 0.71 (0.0-1.3) Lymphocytes % 32.8 (24.0-44.0) % Monocytes % 9.7 (0.0-12.0) % Eosinophils % 4.0 (0.00-5.0) % Basophils % 0.4 (0.0-0.4) % Absolute Granulocytes 3.90 (1.4-6.9) Basophils # 0.03 (0-0.4) Sodium 137 (137-145) mmol/L Potassium 3.9 (3.5-5.1) mmol/L Chloride 102 (98-107) mmol/L Carbon Dioxide 31 H (22-30) mmol/L Anion Gap 7.7 (5-15) MEQ/L BUN 9 (7-17) mg/dL Creatinine 0.71 (0.52-1.04) mg/dL Estimated GFR > 60.0 ML/MIN Glucose 111 H (74-106) mg/dL Hemoglobin A1c 5.78 (4.5-6.0) % Calcium 8.6 (8.4-10.2) mg/dL Phosphorus 3.9 (2.5-4.5) mg/dL Magnesium 2.1 (1.6-2.3) mg/dL Total Bilirubin 0.50 (0.2-1.3) mg/dL AST 29 (14-36) U/L ALT 19 (0-35) U/L Alkaline Phosphatase 100 (38-126) U/L Serum Total Protein 6.9 (6.3-8.2) g/dL Albumin 3.6 (3.5-5.0) g/dL Micro Results-Entire Visit: Microbiology 09/17/20 13:07 Urine Culture - Final Clean Catch Midstream Escherichia Coli 09/17/20 13:55 Blood Culture - Preliminary Blood NO GROWTH TO DATE 09/17/20 12:55 Blood Culture - Preliminary Blood NO GROWTH TO DATE - Procedures and Test Procedures and Tests throughout Hospitalization: Therapy Orders & Screens 09/17/20 16:18 PT Eval & Treat ( Order) ONCE Reason for Eval:: BLE celllulitis, swelling, drainage Diagnosis: BLE cellulitis Discharge Exam General Appearance: no apparent distress, obese Neurologic Exam: alert, oriented x 3, cooperative, normal mood/affect Eye Exam: eyes nml inspection Ears, Nose, Throat Exam: moist mucous membranes Neck Exam: normal inspection Respiratory Exam: normal breath sounds, lungs clear, No crackles/rales, No rhonchi, No wheezing Cardiovascular Exam: regular rate/rhythm, normal heart sounds, No murmur Back Exam: normal inspection, No rash Extremity Exam: normal inspection, No pedal edema, No swelling Skin Exam: warm, dry, other (face with scattered mildly erythematous patches. Anterior RLE with approx 1x3cm abrasion. LLE medially with approx 3 cm lesion, covered with barrier cream.) Wound Assessment: Skin/Wound Assessment Wound/Incision Assessment Start: 09/17/20 16:0 0 Text: Status: Active Freq: Q6H Protocol: Document 09/20/20 08:00 IVAN (Rec: 09/20/20 08:19 IVAN [id number]) Wound/Incision Assessment BLE Wound Assessment Shift Assessment Wound Type cellulitus Wound Stage Non Pressure Wound Dressing Status Changed Drainage Amount Minimal Drainage Description Serous Drainage Odor None/Absent General Appearance Reddened,Draining, Unapproximated Surrounding Tissue Edematous,Weeping Topical Solution/Irrigant Saline Irrigant Primary Dressing Gauze Pads Secondary Dressing Gauze Roll/Wrap Comment wet to dry dressings in place Wound Photo Photo Taken No Final Diagnosis/Problem List - Final Discharge Diagnosis/Problem (1) Cellulitis Current Visit: Yes Status: Acute Assessment & Plan: Much improved. home on zyvox to finish 10d total; f/u with Dr. Alvarado in 1 week. Pt was on 40mg lasix daily here; I put her on 20mg lasix daily x 7d, then per Dr. Alvarado, thank you. Small amount of norco given (INSPECT appropriate today 09/20/20). Code(s): L03.90 - CELLULITIS, UNSPECIFIED (2) UTI (urinary tract infection) Current Visit: Yes Status: Acute Assessment & Plan: Will tx for 3d, but there were few CFUs on the culture and pt asx. Code(s): N39.0 - URINARY TRACT INFECTION, SITE NOT SPECIFIED (3) Anxiety Current Visit: Yes Status: Acute Assessment & Plan: I think situational; not going home on ativan. Code(s): F41.9 - ANXIETY DISORDER, UNSPECIFIED (4) Hypocalcemia Current Visit: Yes Status: Resolved Code(s): E83.51 - HYPOCALCEMIA (5) Hypothyroidism (acquired) Current Visit: Yes Status: Chronic Code(s): E03.9 - HYPOTHYROIDISM, UNSPECIFIED - Discharge Disposition: Home, Self-Care Condition: Stable Prescriptions: New Calcium Carb/Vitamin D 500 mg* [Calcium 500MG W/Vit D Tablet] 1 tab PO TID tablet Hydrocodone/Acetaminophen [Hydrocodone-Acetamin 5-325 mg] 1 tab PO Q6HPRN PRN #21 tablet MDD 4 PRN Reason: Pain Ertapenem Sodium 1 gm [Invanz 1 GM] 1 g IV Q24H10 vial Levothyroxine Sodium 50 Mcg [Synthroid 50 Mcg] 50 mcg PO DAILY #30 tablet Linezolid [Zyvox] 600 mg PO BID #12 tablet Furosemide 20 mg [Lasix 20 mg] 20 mg PO DAILY #7 tablet Discontinued Sulfamethoxazole/Trimethoprim [Bactrim Ds Tablet] 1 ea BID Amoxicillin 1 ea BID Outpatient Orders: Physical Therapy Eval & Treat Time Frame: 09/21/20, Facility: [facility], Location: PHYSICAL THERAPY Instructions: Cellulitis (Skin Infection), Adult (DC) Additional Instructions: -KEEP BOTH LEG DRESSINGS DRY. -YOU WILL NEED TO COME BACK TO [facility] TOMORROW (September) AT 9AM FOR AN ANTIBIOTIC INFUSION. -AFTER YOUR INFUSION YOU WILL NEED TO GO TO THE PHYSICAL THERAPY DEPARTMENT AND HAVE YOUR DRESSING CHANGED BY PHYSICAL THERAPY Follow up with: RICH ALVARADO [ACTIVE STAFF] - Call for Appointment
--- NOTE | 2020-09-21 07:49 | HP ---
CHIEF COMPLAINT: Leg wounds draining and swelling. HISTORY OF PRESENT ILLNESS: The patient is a 45 year-old white female who has been treating chronic leg wounds over the past few weeks. She has been receiving amoxicillin and Bactrim without any improvement. She was seen at the [facility] and they told her that they would get her involved with an outpatient physical therapy wound management but they never arranged to do this for her. She presented to our emergency room with the problems with leg swelling that has been going on for a year. The patient has previously had thyroid treatments to kill off her thyroid and has not been taking her thyroid medicine since that time although she knows she is hypothyroid. She has also not seen her primary care doctor in our office for over three years and essentially she is a no doctor patient. The patient had previously seen Yazmin Gomez for treatments but again has not been seen for a number of years. PAST MEDICAL/SURGICAL HISTORY: The patient's medical history is otherwise significant for peripheral vascular disease. HOME MEDICATIONS: She currently takes no routine medications other than the amoxicillin and Bactrim that she has been given recently. ALLERGIES: AZITHROMAX. SOCIAL HISTORY: She is a smoker. PHYSICAL EXAMINATION: Her vital signs in the emergency room showed a temperature of 97.1F, pulse 73, respiratory rate 18 and blood pressure 129/82. O2 saturation is 98%. HEENT: Normocephalic, atraumatic. Pupils equal round reactive to light. Extraocular movements are intact. Oropharynx is pink and moist. NECK: Supple without lymphadenopathy, thyromegaly or JVD. CHEST: Clear to auscultation. HEART: Regular rate and rhythm. No murmurs, rubs or gallops were heard. ABDOMEN: Soft without any palpable masses. EXTREMITIES: Without cyanosis, clubbing. There is edema noted and redness over both legs that has been draining over the posterior aspect of the right calf area of some purulent looking material. NEUROLOGIC: The patient is alert and oriented x3 with no focal deficits. LAB DATA AND TESTS: Laboratory studies showed white count was normal at 9,500, hemoglobin 13.5, PLT count 314,000. Her COVID, RSV and influenza tests were negative. Procalcitonin was within normal range at 0.053. The metabolic panel was within normal range with sugar of 102, BUN 10, creatinine 0.95. Liver enzymes were normal. ProBNP is normal at 35.3. Urine was katie and cloudy with specific gravity 1.031, white blood cells 6-10 per high power field, red blood cell 0-2, nitrate was negative. Urine protein was at 30. She had a TSH performed was at 2.84. The patient had venous Doppler which was negative for deep vein thrombosis. ASSESSMENT: A patient with chronic lymphedema and likely hypothyroid from a previous description although her TSH did not play this out being a number of 2.84. We have started her on low dose of Synthroid at 50 mcg daily. We will await for the T4 as well. She has been placed on IV Vancomycin although the patient's white count and procalcitonin are negative and she does not have any fever. The leg certainly warrants antibiotic therapy. We obtain physical therapy consultation for wound care management as well.
== END 2020-09-20 13:00 | disposition home or self-care (01) ==
LOC: ED 12:10 → MED SURG 15:11 → OBSVTOIN 09-18 14:25 → INTOOBSV 09-18 14:25 → UNDODISIN 09-20 13:00
PROVIDERS: ADMIT Family Medicine; ATTEND Family Medicine
DX: L03.116 Cellulitis of left lower limb (principal); L03.115 Cellulitis of right lower limb; N39.0 Urinary tract infection, site not specified; B96.20 Unspecified Escherichia coli [E. coli] as the cause of diseases classified elsewhere; F41.9 Anxiety disorder, unspecified; E83.51 Hypocalcemia; E03.9 Hypothyroidism, unspecified; Z79.899 Other long term (current) drug therapy; F17.200 Nicotine dependence, unspecified, uncomplicated; Z86.39 Personal history of other endocrine, nutritional and metabolic disease; Z20.828 Contact with and (suspected) exposure to other viral communicable diseases
CPT/HCPCS: 0241U; 36000; 36415; 80053; 80202; 81001; 82306; 82947; 83036; 83605; 83735; 83880; 83970; 84100; 84145; 84439; 84443; 85025; 87040; 87077; 87086; 87186; 93970; 96365; 99285; G0378; J1335; J1650; A9270-GY; J3370

== ENCOUNTER 2021-02-21 03:34 | Emergency (ER) | payer OTHER ==
[2021-02-21 04:18] VITALS: BP 150/106; PULSE 73; O2SAT 100
--- NOTE | 2021-02-21 04:23 | ERPHSYRPT ---
- History of Present Illness Time Seen by Provider: 02/21/21 04:07 Source: patient Exam Limitations: no limitations Patient Subjective Stated Complaint: pt states she has had increased swelling in her lower legs and feet for the last 3 days. states she has cellulitis and d rainage from her legs. c/o 8/10 burning pain and states pain is worse when she elevates her legs Triage Nursing Assessment: pt alert and oriented, answers questions approp. pt back per wheelchair, ambulates from wheelchair to stretcher per self with limping gait noted. 3-4 + pitting edema noted to bilat lower ext. ulcers to bilat lower ext appear to chronic in nature. serosang drainage noted from ulcers. Physician History: Patient here for acute on chronic leg pain. Bilateral lower extremity swelling, pain. Previously treated for cellulitis. Although appears to be combination of venous stasis since potentially secondary infection. No falls no trauma. States that she is out of her dressing. States that she has not seen her PCP recently. Would like to be examined today. Timing/Duration: week(s) (weeks ) Severity: moderate Modifying Factors: Improves With: other Allergies/Adverse Reactions: azithromycin [From Zithromax] Allergy (Verified 02/21/21 04:18) Rash Hx Tetanus, Diphtheria Vaccination/Date Given: Yes Hx Influenza Vaccination/Date Given: No Hx Pneumococcal Vaccination/Date Given: No Immunizations Up to Date: Yes Travel Risk - International Travel Have you traveled outside of the country in past 3 weeks: No - Coronavirus Screening Are you exhibiting any of the following symptoms?: No Close contact with a COVID-19 positive Pt in past 14-21 Days: No - Vaccine Status Have you recieved a Covid-19 vaccination: No - Review of Systems Constitutional: No Fever, No Chills Eyes: No Symptoms Ears, Nose, & Throat: No Symptoms Respiratory: No Cough, No Dyspnea Cardiac: No Chest Pain, No Edema, No Syncope Abdominal/Gastrointestinal: No Abdominal Pain, No Nausea, No Vomiting, No Diarrhea Genitourinary Symptoms: No Dysuria Musculoskeletal: Other (Bilateral lower extremity swelling), No Back Pain, No Neck Pain Skin: No Rash Neurological: No Dizziness, No Focal Weakness, No Sensory Changes Psychological: No Symptoms Endocrine: No Symptoms All Other Systems: Reviewed and Negative - Past Medical History Pertinent Past Medical History: Yes Neurological History: No Pertinent History ENT History: No Pertinent History Cardiac History: No Pertinent History Respiratory History: No Pertinent History Endocrine Medical History: Hypothyroidism Musculoskeletal History: No Pertinent History GI Medical History: No Pertinent History History: No Pertinent History Psycho-Social History: Depression Female Reproductive Disorders: No Pertinent History Other Medical History: HX CHRONIC LE EDEMA - Past Surgical History Past Surgical History: No Neuro Surgical History: No Pertinent History Cardiac: No Pertinent History Respiratory: No Pertinent History Gastrointestinal: No Pertinent History Genitourinary: No Pertinent History Musculoskeletal: No Pertinent History Female Surgical History: No Pertinent History 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 - Social History Smoking Status: Current every day smoker How long have you smoked: 23 years Exposure to second hand smoke: Yes Drug Use: none Patient Lives Alone: No Significant Family History: no pertinent family hx - Female History Hx Last Menstrual Period: no uterus Hx Now: No - Nursing Vital Signs Nursing Vital Signs: Initial Vital Signs Temperature 98.0 F 02/21/21 03:50 Pulse Rate 73 02/21/21 03:50 Respiratory Rate 18 02/21/21 03:50 Blood Pressure 150/106 02/21/21 03:50 O2 Sat by Pulse Oximetry 100 02/21/21 03:50 Pain Scale Pain Intensity 8 - Physical Exam General Appearance: no apparent distress, alert Eye Exam: PERRL/EOMI, eyes nml inspection Ears, Nose, Throat Exam: normal ENT inspection, TMs normal, pharynx normal, moist mucous membranes Neck Exam: normal inspection, non-tender, supple, full range of motion Respiratory Exam: normal breath sounds, lungs clear, No respiratory distress Cardiovascular Exam: regular rate/rhythm, normal heart sounds, normal peripheral pulses Gastrointestinal/Abdomen Exam: soft, normal bowel sounds, No tenderness, No mass Back Exam: normal inspection, normal range of motion, No CVA tenderness, No vertebral tenderness Extremity Exam: normal inspection, normal range of motion, pelvis stable, other (Bilateral lower extremity edema with venous stasis. Possibly secondary infection on top.) Neurologic Exam: alert, oriented x 3, cooperative, normal mood/affect, nml cerebellar function, nml station & gait, sensation nml, No motor deficits Skin Exam: normal color, warm, dry, No rash Lymphatic Exam: No adenopathy SpO2: 100 - Course Nursing assessment & vital signs reviewed: Yes - Progress Progress: improved Progress Note: 02/21/21 04:27 Differential diagnosis includes worsening cellulitis, infection, venous stasis, other cause of leg swelling including bilateral DVTs. On my exam patient states that she does not want to stay for further evaluation. She states that she would like to just follow-up with her PCP. She states that she does not have a ride home therefore is ready to be discharged. Patient states that she has home doxycycline and will follow up with her PCP. I highly encourage continued wraps, soaking, she may take Doxy if she wants. However I would not feel comfortable diagnosing her with cellulitis at this point in time without further evaluation and lab work, potential ultrasound, other imaging. Patient states understanding and will return here at any point in time. Counseled pt/family regarding: diagnosis, need for follow-up - Departure Departure Disposition: Home Clinical Impression: Cellulitis Condition: Stable Critical Care Time: No Referrals: JEWEL SIMPSON DO [Primary Care Provider] -
== END 2021-02-21 04:23 | disposition left against medical advice (07) ==
LOC: ED 03:34
DX: L03.116 Cellulitis of left lower limb (principal); L03.115 Cellulitis of right lower limb; M79.89 Other specified soft tissue disorders; E03.9 Hypothyroidism, unspecified
CPT/HCPCS: 99283

== ENCOUNTER 2024-03-02 17:00 | Emergency (ER) | payer OTHER ==
[2024-03-02 17:11] VITALS: TEMP 97.4; O2SAT 96
--- NOTE | 2024-03-02 17:25 | ERPHSYRPT ---
<PAULIE JEFFERY. - Last Filed: 03/02/24 20:18> - History of Present Illness Source: patient Exam Limitations: no limitations Patient Subjective Stated Complaint: pt here for pain and weeping to both legs.this is chronic but worse the last month. no fever Triage Nursing Assessment: pt alert, arrived per wc, resp easy. skin w.d.p, has weeping and swelling with sloughing of skin Timing/Duration: week(s) (4) Quality: painful Severity: severe Location: extremities (b/l, L>R) Possible Causes: no cause identified Associated Symptoms: blisters, change in skin texture, edema, No difficulty breathing, No fever Hx Tetanus, Diphtheria Vaccination/Date Given: Yes Hx Influenza Vaccination/Date Given: No Hx Pneumococcal Vaccination/Date Given: No Immunizations Up to Date: Yes <FERNANDO MAYFIELD - Last Filed: 03/06/24 21:10> - History of Present Illness Time Seen by Provider: 03/02/24 17:15 Physician History: The patient presents with chronic wounds on the lower legs. She is accompanied by her . She has been experiencing chronic wounds on her lower legs for approximately two years. Initially, she was hospitalized for seven days due to this condition. The wounds have been recurrent, with periods of healing followed by exacerbations. Currently, the wounds are covered in petroleum jelly. She has previously received wound care, which was effective temporarily, but the wounds have since returned. She has not been on antibiotics recently and has not experienced any kidney problems. The condition worsens with stress and when she is unable to elevate her feet due to caregiving responsibilities for her . Her primary focus has been on caregiving for her , which has impacted her ability to manage her own health, including elevating her feet to manage swelling. (FERNANDO MAYFIELD) Allergies/Adverse Reactions: azithromycin [From Zithromax] Allergy (Verified 03/02/24 17:08) Rash Travel Risk - International Travel Have you traveled outside of the country in past 3 weeks: No - Emerging Infectious Disease Are you exhibiting symptoms associated with any current EIDs: No <FERNANDO MAYFIELD - Last Filed: 03/06/24 21:10> - Review of Systems All Other Systems: Reviewed and Negative <FERNANDO MAYFIELD - Last Filed: 03/06/24 21:10> - Past Medical History Pertinent Past Medical History: Yes Neurological History: No Pertinent History ENT History: No Pertinent History Cardiac History: No Pertinent History Respiratory History: No Pertinent History Endocrine Medical History: Hypothyroidism Musculoskeletal History: No Pertinent History GI Medical History: No Pertinent History History: No Pertinent History Psycho-Social History: Depression Female Reproductive Disorders: No Pertinent History Other Medical History: HX CHRONIC LE EDEMA - Past Surgical History Past Surgical History: No Neuro Surgical History: No Pertinent History Cardiac: No Pertinent History Respiratory: No Pertinent History Gastrointestinal: Other Genitourinary: No Pertinent History Musculoskeletal: No Pertinent History Female Surgical History: No Pertinent History 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 ,lap Significant Family History: no pertinent family hx - Female History Hx Last Menstrual Period: none Hx Now: No - Social History Smoking Status: Current every day smoker How long have you smoked: 23 years Exposure to second hand smoke: Yes Drug Use: none Patient Lives Alone: No - Social Determinants of Health Will the patient participate in the screening: Declined to provide <FERNANDO MAYFIELD - Last Filed: 03/06/24 21:10> - Physical Exam General Appearance: no apparent distress, obese Extremity Exam: inflammation, pedal edema, swelling, tenderness, other (purulent drainage with honey crusted superficial layer, erythema from ankle to knee on left and smaller area on right) Neurologic Exam: alert, oriented x 3, cooperative SpO2 Interpretation: normal SpO2: 96 O2 Delivery: Room Air <FERNANDO MAYFIELD - Last Filed: 03/06/24 21:10> - Nursing Vital Signs Nursing Vital Signs: Initial Vital Signs Blood Pressure 166/85 03/02/24 17:08 Pain Scale Pain Intensity 0 - Course Nursing assessment & vital signs reviewed: Yes <FERNANDO MAYFIELD - Last Filed: 03/06/24 21:10> Ordered Tests: Medication Summary Discontinued Medications Generic Name Dose Route Start Last Admin Trade Name Dickq PRN Reason Stop Dose Admin Amoxicillin/Clavulanate Potassium 875 mg 03/02/24 20:21 03/02/24 20:41 Amox Tr/Potassium Clavulanate 875 Mg Tablet PO 03/02/24 20:22 875 mg STAT ONE Administration Amoxicillin/Clavulanate Potassium Confirm 03/02/24 20:38 Amox Tr/Potassium Clavulanate 875 Mg Tablet Administered 03/02/24 20:39 Dose 875 mg .ROUTE .STK-MED ONE Furosemide 40 mg 03/02/24 17:29 03/02/24 18:01 Furosemide 40 Mg/4 Ml Vial IV 03/02/24 17:30 40 mg STAT ONE Administration Furosemide Confirm 03/02/24 17:55 Furosemide 40 Mg/4 Ml Vial Administered 03/02/24 17:56 Dose 40 mg .ROUTE .STK-MED ONE Sodium Chloride 1,000 mls @ 999 mls/hr 03/02/24 17:27 03/02/24 19:07 Sodium Chloride 0.9% 1000 Ml IV 03/02/24 18:27 Infused .Q1H1M STA Infusion Vancomycin HCl 1 gm in 200 mls @ 125 mls/hr 03/02/24 17:27 03/02/24 20:40 Vancomycin 1 Gram/200 Ml Bag IV 03/02/24 19:02 Infused STAT ONE Infusion Piperacillin Sod/Tazobactam 100 mls @ 200 mls/hr 03/02/24 17:28 03/02/24 18:05 Sod 3.375 gm/ Sodium Chloride IV 03/02/24 17:57 200 mls/hr STAT ONE Administration Sodium Chloride Confirm 03/02/24 17:56 Sodium Chloride 100ml Mini-Bag Plus Administered 03/02/24 17:57 Dose 100 mls @ ud IV .STK-MED ONE Sodium Chloride Confirm 03/02/24 17:56 Sodium Chloride 0.9% 1000 Ml Administered 03/02/24 17:57 Dose 1,000 mls @ ud .ROUTE .STK-MED ONE Vancomycin HCl Confirm 03/02/24 18:50 Vancomycin 1 Gram/200 Ml Bag Administered 03/02/24 18:51 Dose 1 gm in 200 mls @ ud IV .STK-MED ONE Piperacillin Sod/Tazobactam Sod Confirm 03/02/24 17:55 Piperacillin/Tazobactam Sodium 3.375 Gm Vial Administered 03/02/24 17:56 Dose 3.375 gm IV .STK-MED ONE Lab/Rad Data: Laboratory Result Diagrams 03/02/24 18:13 03/02/24 18:13 Laboratory Results 03/02/24 03/02/24 03/02/24 Range/Units 18:13 18:13 18:13 WBC (3.98-10.04) x10^3/uL RBC (3.93-5.22) x10^6/uL Hgb (11.2-15.7) g/dL Hct (34.1-44.9) % MCV (79.4-94.8) fL MCH (25.6-32.2) pg MCHC (32.2-35.5) g/dL RDW (11.7-14.4) % Plt Count (182-369) x10^3/uL MPV (9.4-12.3) fL Gran % (34.0-71.1) % Immature Gran % (Auto) (0.001-0.429) % Nucleat RBC Rel Count (0.00-0.2) % Eos # (Auto) (0.04-0.36) x10^3/uL Immature Gran # (Auto) (0.001-0.031) x10^3u/L Absolute Lymphs (auto) (1.18-3.74) x10^3/uL Absolute Monos (auto) (0.24-0.86) x10^3/uL Absolute Nucleated RBC (0.00-0.012) x10^3u/L Lymphocytes % (19.3-51.7) % Monocytes % (4.7-12.5) % Eosinophils % (0.7-5.8) % Basophils % (0.1-1.2) % Absolute Granulocytes (1.56-6.13) x10^3/uL Basophils # (0.01-0.08) x10^3/uL ESR (0-20) mm/hr Sodium (135-145) mmol/L Potassium (3.5-5.1) mmol/L Chloride (98-107) mmol/L Carbon Dioxide (22-30) mmol/L Anion Gap (5-15) MEQ/L BUN (7-17) mg/dL Creatinine (0.52-1.04) mg/dL Estimated GFR ML/MIN Glucose (74-106) mg/dL Hemoglobin A1c 5.87 (4.5-6.0) % Lactic Acid (0.4-2.0) Calcium (8.4-10.2) mg/dL Total Bilirubin (0.2-1.3) mg/dL AST (14-36) U/L ALT (0-35) U/L Alkaline Phosphatase (38-126) U/L Serum Total Protein (6.3-8.2) g/dL Albumin (3.5-5.0) g/dL Triglycerides 170 H (30-150) mg/dL Cholesterol 176 (50-200) mg/dL LDL Cholesterol 115 H (30-100) mg/dL HDL Cholesterol 40 (40-60) mg/dL Heart Disease Risk Ratio 4.0 Procalcitonin < 0.030 L (0.030-0.080) ng/mL TSH 3rd Generation 4.354 (0.470-4.680) mIU/L 03/02/24 03/02/24 03/02/24 Range/Units 18:13 18:13 18:13 WBC 12.1 H (3.98-10.04) x10^3/uL RBC 4.38 (3.93-5.22) x10^6/uL Hgb 13.7 (11.2-15.7) g/dL Hct 41.8 (34.1-44.9) % MCV 95.4 H (79.4-94.8) fL MCH 31.3 (25.6-32.2) pg MCHC 32.8 (32.2-35.5) g/dL RDW 13.5 (11.7-14.4) % Plt Count 302 (182-369) x10^3/uL MPV 9.8 (9.4-12.3) fL Gran % 76.9 H (34.0-71.1) % Immature Gran % (Auto) 0.3 (0.001-0.429) % Nucleat RBC Rel Count 0.0 (0.00-0.2) % Eos # (Auto) 0.23 (0.04-0.36) x10^3/uL Immature Gran # (Auto) 0.04 H (0.001-0.031) x10^3u/L Absolute Lymphs (auto) 1.47 (1.18-3.74) x10^3/uL Absolute Monos (auto) 1.00 H (0.24-0.86) x10^3/uL Absolute Nucleated RBC 0.00 (0.00-0.012) x10^3u/L Lymphocytes % 12.2 L (19.3-51.7) % Monocytes % 8.3 (4.7-12.5) % Eosinophils % 1.9 (0.7-5.8) % Basophils % 0.4 (0.1-1.2) % Absolute Granulocytes 9.26 H (1.56-6.13) x10^3/uL Basophils # 0.05 (0.01-0.08) x10^3/uL ESR 49 H (0-20) mm/hr Sodium 139 (135-145) mmol/L Potassium 3.9 (3.5-5.1) mmol/L Chloride 105 (98-107) mmol/L Carbon Dioxide 28 (22-30) mmol/L Anion Gap 10.2 (5-15) MEQ/L BUN 10 (7-17) mg/dL Creatinine 0.79 (0.52-1.04) mg/dL Estimated GFR 92.8 ML/MIN Glucose 141 H (74-106) mg/dL Hemoglobin A1c (4.5-6.0) % Lactic Acid (0.4-2.0) Calcium 8.5 (8.4-10.2) mg/dL Total Bilirubin 0.80 (0.2-1.3) mg/dL AST 18 (14-36) U/L ALT 16 (0-35) U/L Alkaline Phosphatase 109 (38-126) U/L Serum Total Protein 6.9 (6.3-8.2) g/dL Albumin 3.5 (3.5-5.0) g/dL Triglycerides (30-150) mg/dL Cholesterol (50-200) mg/dL LDL Cholesterol (30-100) mg/dL HDL Cholesterol (40-60) mg/dL Heart Disease Risk Ratio Procalcitonin (0.030-0.080) ng/mL TSH 3rd Generation (0.470-4.680) mIU/L 03/02/24 Range/Units 17:40 WBC (3.98-10.04) x10^3/uL RBC (3.93-5.22) x10^6/uL Hgb (11.2-15.7) g/dL Hct (34.1-44.9) % MCV (79.4-94.8) fL MCH (25.6-32.2) pg MCHC (32.2-35.5) g/dL RDW (11.7-14.4) % Plt Count (182-369) x10^3/uL MPV (9.4-12.3) fL Gran % (34.0-71.1) % Immature Gran % (Auto) (0.001-0.429) % Nucleat RBC Rel Count (0.00-0.2) % Eos # (Auto) (0.04-0.36) x10^3/uL Immature Gran # (Auto) (0.001-0.031) x10^3u/L Absolute Lymphs (auto) (1.18-3.74) x10^3/uL Absolute Monos (auto) (0.24-0.86) x10^3/uL Absolute Nucleated RBC (0.00-0.012) x10^3u/L Lymphocytes % (19.3-51.7) % Monocytes % (4.7-12.5) % Eosinophils % (0.7-5.8) % Basophils % (0.1-1.2) % Absolute Granulocytes (1.56-6.13) x10^3/uL Basophils # (0.01-0.08) x10^3/uL ESR (0-20) mm/hr Sodium (135-145) mmol/L Potassium (3.5-5.1) mmol/L Chloride (98-107) mmol/L Carbon Dioxide (22-30) mmol/L Anion Gap (5-15) MEQ/L BUN (7-17) mg/dL Creatinine (0.52-1.04) mg/dL Estimated GFR ML/MIN Glucose (74-106) mg/dL Hemoglobin A1c (4.5-6.0) % Lactic Acid 1.3 (0.4-2.0) Calcium (8.4-10.2) mg/dL Total Bilirubin (0.2-1.3) mg/dL AST (14-36) U/L ALT (0-35) U/L Alkaline Phosphatase (38-126) U/L Serum Total Protein (6.3-8.2) g/dL Albumin (3.5-5.0) g/dL Triglycerides (30-150) mg/dL Cholesterol (50-200) mg/dL LDL Cholesterol (30-100) mg/dL HDL Cholesterol (40-60) mg/dL Heart Disease Risk Ratio Procalcitonin (0.030-0.080) ng/mL TSH 3rd Generation (0.470-4.680) mIU/L - Progress Progress: unchanged <PAULIE JEFFERY - Last Filed: 03/02/24 20:18> - Progress Counseled pt/family regarding: lab results, diagnosis, need for follow-up <FERNANDO MAYFIELD - Last Filed: 03/06/24 21:10> - Progress Progress Note: 03/02/24 20:19 Patient was stable throughout stay. She does not have a white count or fevers. She probably does have some cellulitis in her lower extremities. Definitely has veryEdematous lower extremities secondary to probably vascular insufficiency. I gave her an option of getting admitted and getting some wound care started. She refused admission. I told her that we will go ahead and start her on some antibiotics and she needs to follow-up with her primary care doctor. She is going to keep doing the compression stockings. (PAULIE JEFFERY) Medical Desision Making - Social Determinants of Health Pt's dx & treatment plan are significantly limited by SDOH: financial hardships, limited education - Diagnostic Testing Diagnostic test were ordered, analyzed, and reviewed by me: Yes <PAULIE JEFFERY - Last Filed: 03/02/24 20:18> - Departure Departure Disposition: Home Critical Care Time: No <PAULIE JEFFERY - Last Filed: 03/02/24 20:18> <FERNANDO MAYFIELD - Last Filed: 03/06/24 21:10> - Departure Clinical Impression: Cellulitis, Venous insufficiency of both lower extremities Condition: Stable Referrals: DOCTOR,NO FAMILY [Primary Care Provider] - Follow up/PCP as directed Instructions: Wound Care (DC) Prescriptions: Amox Tr/Potass Clav. 875 mg [Augmentin 875-125 Tablet] 875 mg PO BID #14 tablet
[2024-03-02] MEDS ORDERED: PIPERACILLIN/TAZOBACTAM IV ONE (17:55)
[2024-03-02] MEDS ORDERED: Lasix 40 MG/4 ML ONE (17:55)
[2024-03-02] MEDS ORDERED: Sodium Chloride 0.9% 1000 ML 1,000 ML ONE (17:56)
[2024-03-02] MEDS ORDERED: Sodium Chloride 100ML MINI-BAG PLUS 100 ML IV ONE (17:56)
[2024-03-02] MEDS: Sodium Chloride 0.9% 1000 ML 1,000 ML IV STA (18:00)
[2024-03-02] MEDS: Lasix 40 MG/4 ML IV ONE (18:01)
[2024-03-02] MEDS: PIPERACILLIN/TAZOBACTAM 3.375 GM in Sodium Chloride 100ML MINI-BAG PLUS 100 ML IV ONE (18:05)
[2024-03-02 18:08] VITALS: PULSE 77; RESP 16
[2024-03-02 18:17] LABS: Absolute Neutrophil Ct (ANC) 9.26 x10^3/uL (1.56-6.13); BASOPHIL % 0.4 % (0.1-1.2); Basophil (Absolute #) 0.05 x10^3/uL (0.01-0.08); Eosinophil % 1.9 % (0.7-5.8); Eosinophil (Absolute #) 0.23 x10^3/uL (0.04-0.36); Hematocrit 41.8 % (34.1-44.9); Hemoglobin 13.7 g/dL (11.2-15.7); IMMATURE GRAN # 0.04 x10^3u/L (0.001-0.031); IMMATURE GRAN % 0.3 % (0.001-0.429); Lymphocyte (Absolute #) 1.47 x10^3/uL (1.18-3.74); Lymphocytes % 12.2 % (19.3-51.7); Mean Cell Volume 95.4 fL (79.4-94.8); Mean Corpuscular Hemoglobin 31.3 pg (25.6-32.2); Mean Corpuscular Hgb Concent. 32.8 g/dL (32.2-35.5); Mean Platelet Volume 9.8 fL (9.4-12.3); Monocytes % 8.3 % (4.7-12.5); Neutrophil % 76.9 % (34.0-71.1); Platelet Count 302 x10^3/uL (182-369); Red Blood Count 4.38 x10^6/uL (3.93-5.22); Red Cell Distribution Width 13.5 % (11.7-14.4); White Blood Count 12.1 x10^3/uL (3.98-10.04)
[2024-03-02 18:31] LABS: ALBUMIN 3.5 g/dL (3.5-5.0); ANION GAP 10.2 MEQ/L (5-15); BILIRUBIN,TOTAL 0.8 mg/dL (0.2-1.3); Calcium 8.5 mg/dL (8.4-10.2); Creatinine 1 0.79 mg/dL (0.52-1.04); EST GLOMERULAR FILTRATION RATE 92.8 ML/MIN; Potassium 3.9 mmol/L (3.5-5.1); Total Protein 6.9 g/dL (6.3-8.2)
[2024-03-02] MEDS ORDERED: VANCOMYCIN 1 GRAM/200 ML BAG 1 GM/200 ML PIGGYBACK IV ONE (18:50)
[2024-03-02] MEDS: VANCOMYCIN 1 GRAM/200 ML BAG 1 GM/200 ML PIGGYBACK IV ONE (18:51)
[2024-03-02 19:05] LABS: TSH, 3RD Generation 4.354 mIU/L (0.470-4.680)
[2024-03-02 19:13] VITALS: BP 167/104
[2024-03-02] MEDS ORDERED: Augmentin 875-125 Tablet ONE (20:38)
[2024-03-02] MEDS: Augmentin 875-125 Tablet PO ONE (20:41)
== END 2024-03-02 20:43 | disposition home or self-care (01) ==
LOC: ED 17:00
DX: I83.218 Varicose veins of right lower extremity with both ulcer of other part of lower extremity and inflammation (principal); I83.228 Varicose veins of left lower extremity with both ulcer of other part of lower extremity and inflammation; L97.819 Non-pressure chronic ulcer of other part of right lower leg with unspecified severity; L97.829 Non-pressure chronic ulcer of other part of left lower leg with unspecified severity; L03.115 Cellulitis of right lower limb; L03.116 Cellulitis of left lower limb; Z72.0 Tobacco use; Z59.9 Problem related to housing and economic circumstances, unspecified; Z55.9 Problems related to education and literacy, unspecified
CPT/HCPCS: 36000; 36415; 80053; 80061; 83036; 83605; 83721; 84145; 84443; 85025; 85652; 87040; 87070; 87077; 87186; 93041; 94760; 96360; 96365; 96374; 99284; J1940; A9270-GY; J3370